=== PATIENT | female | born 1955 | race Caucasian/White ===

== ENCOUNTER → 2021-07-30 12:22 | Outpatient (CLI) | payer MEDICARE, SELFPAY ==
[2021-07-30 15:06] LABS: PTHIN 141.9 pg/mL (18.4-80.1)
[2021-07-30 15:13] LABS: Alkaline Phosphatase 95 U/L (45-117)
== END ==
PROVIDERS: PCP Family Medicine; Referring Provider Otolaryngology; Visit Provider Otolaryngology
DX: E83.52 Hypercalcemia (principal)
CPT/HCPCS: 36415; 82330; 83970; 84075

== ENCOUNTER → 2024-02-01 | Outpatient (CLI) | payer MEDICARE, SELFPAY ==
--- NOTE | 2024-02-01 10:08 | NM_ITS ---
CLINICAL: 68-year-old female with history of hypercalcemia and elevation of the serum parathyroid hormone level. 99m Tc SESTAMIBI DUAL PHASE PARATHYROID SCINTIGRAPHY COMPARISON: None available FINDINGS: Following the intravenous administration of 24.7 mCi of 99m Tc sestamibi, image acquisitions of the anterior neck at 15 minutes and approximately 3.0 hours post radiopharmaceutical provision reveal: 1. Immediate static blood pool acquisitions demonstrate distribution of the radiotracer in the right and left lobes of a U-shaped thyroid gland. Uptake is most accentuated in the region of the left thyroid parenchyma. 2. Delayed images depict incomplete washout of the radiopharmaceutical from the right lobe thyroid colloid. There is persistent relatively increased uptake noted in the left thyroid bed, essentially unchanged from the initial acquisitions. NM/Parathyroid Scan IMPRESSION: 1. ABNORMAL 99m Tc SESTAMIBI PARATHYROID IMAGING DUAL PHASE EXAMINATION. 2. There appears to be scintigraphic evidence of parathyroid adenoma involving the left lobe thyroid bed. 3. Incomplete-delayed washout of the radiopharmaceutical from the right lobe functioning thyroid colloid may be secondary to multinodular goiter, chronic lymphocytic thyroiditis. (Chambers, Radiographics 19: 601, 1999). Electronically Signed: Ramana Varghese DO at 9:28 EDT ,
== END | disposition home or self-care (01) ==
LOC: NM 10:06
PROVIDERS: Referring Provider Internal Medicine Endocrinology, Diabetes & Metabolism; Visit Provider Internal Medicine Endocrinology, Diabetes & Metabolism
DX: E55.9 Vitamin D deficiency, unspecified (principal); E21.3 Hyperparathyroidism, unspecified; N18.9 Chronic kidney disease, unspecified; E04.1 Nontoxic single thyroid nodule
CPT/HCPCS: 78070; A9500

== ENCOUNTER → 2024-04-30 | Outpatient (CLI) | payer MEDICARE, SELFPAY ==
--- NOTE | 2024-04-30 12:57 | US_ITS ---
STUDY: THYROID ULTRASOUND REASON FOR EXAM: Female, 68 years old. Thyroid ultrasound TECHNIQUE: Ultrasound evaluation of the thyroid was performed with real-time and static figueroa-scale imaging. COMPARISON: 10/13/2022 FINDINGS: RIGHT LOBE: The right lobe of the thyroid gland measures 5.3 x 1.6 x 1.9 cm. There is a heterogeneous echotexture. Nodule 1: No change in a 23 x 11 x 13 mm solid hypoechoic wider than tall smoothly marginated nodule with no echogenic foci (TR 4) in the anterior right lobe for which ultrasound-guided biopsy is recommended if never performed. LEFT LOBE: The left lobe of the thyroid gland measures 3.7 x 1.8 x 1.5 cm. There is a heterogeneous echotexture. Nodule 2: Enlarging (16 x 8 x 12 mm from 12 x 8 x 9 mm) solid hypoechoic wider than tall smoothly marginated nodule with no echogenic foci (TR 4) in the posterior left lobe for which ultrasound-guided biopsy is recommended. ISTHMUS: The isthmus measures 3 mm thick. Nodule 3: No change in the 6 x 4 x 5 mm solid hypoechoic wider than tall smoothly marginated nodule with no echogenic foci (TR 4) in the right side of the isthmus consistent with an adenoma.. The regional lymph nodes are normal. US/Thyroid IMPRESSION: Thyroiditis with dominant nodules for which ultrasound-guided biopsy is recommended, including an enlarging nodule in the left lobe.. Electronically Signed: Ramana Wilkins MD at 17:56 EDT ,
== END | disposition home or self-care (01) ==
PROVIDERS: Referring Provider Surgery; Visit Provider Surgery
DX: E04.1 Nontoxic single thyroid nodule (principal)
CPT/HCPCS: 76536

== ENCOUNTER → 2024-05-11 | Outpatient (CLI) | payer MEDICARE, SELFPAY ==
--- NOTE | 2024-05-11 | IMM_PTH ---
PATIENT: BEN SMILEY LOC: [facility] U#:[id number] AGE/SX: 68/F ROOM: RE05/11/[address]: Dr. Jose Martin Rey MD : 1955 BED: DIS: 05/11/2024 SPEC #: [id number] RECD: 05/23/24 14:33 STATUS: KADEN REQ #: [id number] MIKE: 05/11/24 00:[address]: Jose Martin Rey DEPT: IMMUNOHISTOCHEMISTRY RECD BY: Reza More ENTERED: 05/23/24 14:34 SP TYPE: IMMUNO OTHR DR: Dr. Mikel Mcnulty DO Tissues: A - Thyroid gland, NOS Procedures: Thyroglobulin (add) TTF1 (initial) PHYSICIAN & INSTITUTION [place] [id number] SPECIMEN INFORMATION: Tissue Source: A- Left thyroid nodule fluid Clinical Info: Left thyroid nodule Specimen Number: [id number] CPT code: 08959,52168 METHODOLOGY: Deparaffinized sections of prefer/formalin-fixed tissue or PAP/DQ stained slides are incubated with monoclonal/polyclonal antibodies/oligonucleotide probes. Localization is made via biotin free immunoperoxidase method. Appropriate controls are performed and reacted as expected. Results on target cell population are indicated in the following table: RESULTS: ANTIBODY / CLONE RESULT Block A TTF-1 (8G7G3/1) negative Thyro (2H11+6E1) negative These tests were developed and their performance characteristics determined by [facility]. They may not have been cleared or approved by the U.S. Food and Drug Administration. The FDA has determined that such clearance or approval is not necessary. The above immunohistochemical/dualISH markers are ordered and reviewed by the Pathologist. INTERPRETATION: A. Fine needle aspiration, left thyroid nodule fluid: Cells of parathyroid origin present. AM/mr 05/30/2024
--- NOTE | 2024-05-11 13:40 | FLU_PTH ---
PATIENT: BEN SMILEY LOC: [facility] U#:[id number] AGE/SX: 68/F ROOM: RE05/11/[address]: Dr. Jose Martin Rey MD : 1955 BED: DIS: 05/11/2024 SPEC #: [id number] RECD: 05/11/24 15:23 STATUS: KADEN RESuzi #: [id number] MIKE: 05/11/24 13:[address]: Jose Martin Rey DEPT: CYTOLOGY RECD BY: Ruby Nair ENTERED: 05/14/24 08:57 SP TYPE: Fluid OTHR DR: Dr. Mikel Mcnulyt DO Tissues: A - Thyroid gland, NOS B - Thyroid gland, NOS Procedures: Special Stain Group II Surgery Specimen Level IV Cytospin Fluid Cytology Other HEADER OPERATION: Fine needle aspiration of left thyroid nodule PRE-OP DIAGNOSIS: Left thyroid nodule TISSUE SUBMITTED: A- Left thyroid nodule fluid, B- Left thyroid nodule smears, C- Left thyroid fluid DIAGNOSIS CYTOLOGY A. Fine needle aspiration, left thyroid nodule (cytospins and cellblock): Cells of parathyroid origin present. See comment. B. Fine needle aspiration, left thyroid nodule (smears): Cells of parathyroid origin present. See comment. C. Fine needle aspiration, left thyroid (cytospins and cellblock): Cells of parathyroid origin present. See comment. AM/mr 05/15/2024 COMMENT A, B, C. The primary cell type is of parathyroid origin. Very rare benign follicular cells of thyroid origin are seen. Clinical correlation is suggested. C. PTH stain performed by reference laboratory is focally positive confirming cells of parathyroid origin. A. Immunohistochemistry ([id number]) supports the above diagnosis. Case has been reviewed in consultation with Dr. Palacios who concurs with the above diagnosis. IDC:DONALD CYTOLOGY STUDY Slides are reviewed. CYTOLOGY GROSS A. Received is 30 ml of red-cloudy fluid labeled with the patient's name and and designated per the requisition as Left thyroid fluid. Submitted for cytology preparation including cell block. B. Received are 4 smears labeled with the patient's name and designated per the requisition as Left thyroid. Submitted for staining. C. Received is 0.5 ml of red-cloudy fluid labeled with the patient's name and and designated per the requisition as Left thyroid fluid. Submitted for cytology preparation including cell block. Mr 05/14/2024 TC:5 CPT: 64754u8,92602
== END | disposition home or self-care (01) ==
LOC: LABSPEC 15:30
PROVIDERS: Referring Provider Surgery; Visit Provider Surgery
DX: E04.1 Nontoxic single thyroid nodule (principal)
CPT/HCPCS: 88108; 88161; 88305; 88313; 88341; 88342

== ENCOUNTER 2024-07-03 11:29 | Observation (INO) | payer MEDICARE, SELFPAY ==
[2024-07-03] VITALS (13 sets, daily range): BP systolic 130–169; BP diastolic 51–73; PULSE 54–96; RESP 14–18; TEMP 36.3–36.9; O2SAT 92–100; BMI 43.6
--- NOTE | 2024-07-03 | IMM_PTH ---
PATIENT: BEN SMILEY LOC: [facility] U#:[id number] AGE/SX: 68/F [place]OM: [facility] [place]/03/[address]: Dr. Jose Martin Rey MD : 1955 BED: 1 DIS: 07/04/2024 SPEC #: [id number] RECD: 07/04/24 13:53 STATUS: SOUShruthi REQ #: [id number] MIKE: 07/03/24 00:[address]: Jose Martin Rey DEPT: IMMUNOHISTOCHEMISTRY RECD BY: Reza More ENTERED: 07/04/24 13:54 SP TYPE: IMMUNO OTHR DR: Dr. Mikel Mcnulty, Tissues: Thyroid gland, NOS Procedures: Thyroglobulin (add) CD31 (add) FACTOR VIII (add) NEUROFIL (add) S-100 (add) TTF1 (initial) PHYSICIAN & INSTITUTION [place] [address] SPECIMEN INFORMATION: Tissue Source: Left thyroid lobe and isthmus Clinical Info: Hyperparathyroidism Specimen Number: [id number] CPT code: 67808,50119x5 METHODOLOGY: Deparaffinized sections of prefer/formalin-fixed tissue or PAP/DQ stained slides are incubated with monoclonal/polyclonal antibodies/oligonucleotide probes. Localization is made via biotin free immunoperoxidase method. Appropriate controls are performed and reacted as expected. Results on target cell population are indicated in the following table: RESULTS: ANTIBODY / CLONE RESULT Block #3 TTF-1 (8G7G3/1) negative Thyro (2H11+6E1) negative CD31 (TAMIKO/70A) negative Factor VIII (R Ag) negative S-100 (4C4.9) negative Neurofil (2F11) negative These tests were developed and their performance characteristics determined by [facility]. They may not have been cleared or approved by the U.S. Food and Drug Administration. The FDA has determined that such clearance or approval is not necessary. The above immunohistochemical/dualISH markers are ordered and reviewed by the Pathologist. INTERPRETATION: Left thyroid and isthmus, lobectomy and isthmectomy: Hyperplastic parathyroid tissue. AM 07/05/2024
--- NOTE | 2024-07-03 06:32 | HP.PCM_ITS ---
History and Physical Date of Admission: 07/03/24 Date of Service: 06/13/24 MR#: [id number] Acct: [id number] Name: BEN MAY Rep #: [id number] : 1955 Provider: Dr. Jose Martin Rey MD Age/Sex: 68/F Location: [facility] Status: Signed Intake Vital Signs 05/04/2414:26 06/13/2414:31 Height 5 ft 8 in 5 ft 8 in Weight: 282 lb 280 lb BMI 42.8 42.5 BP 141/60 H 104/66 Blood Pressure Location Rt brachial Lt brachial Position Sitting Respiration 18 18 Pulse 77 Pulse Source Monitor Temp 97.6 F L Temp Source Temporal Pulse Oximetry (%) 99 Oxygen Delivery Method room air Intake Visit Reasons: DISCUSS SURGERY Chief Complaint: discuss surgery Commercial Loan Officer Required: No Is patient in pain?: Yes (generalized) Allergies bee venom protein (honey bee) (bee sting) Adverse Reaction (Severe, Verified 06/13/24 14:31) Anaphylaxisclarithromycin (From Biaxin) Adverse Reaction (Unknown, Verified 06/13/24 14:31) PT UNSURE OF REACTION Medications ?Medication ?Instructions ?Recorded ?Confirmed ?Type atorvastatin 10 mg tablet 10 mg PO QDAY 04/05/24 06/13/24 History carvedilol 6.25 mg tablet 6.25 mg PO BID 04/05/24 06/13/24 History clopidogrel 75 mg tablet 75 mg PO QDAY 04/05/24 06/13/24 History diltiazem HCl 240 mg 240 mg PO QDAY 04/05/24 06/13/24 History capsule,extended release 24 hr guaifenesin 600 mg tablet, 600 mg PO BID 04/05/24 06/13/24 History extended release 12 hr isosorbide mononitrate 30 mg 30 mg PO QDAY 04/05/24 06/13/24 History tablet,extended release 24 hr levothyroxine 50 mcg tablet 50 mcg PO QDAY 04/05/24 06/13/24 History lisinopril 20 mg tablet 20 mg PO BID 04/05/24 06/13/24 History meloxicam 15 mg tablet 15 mg PO QDAY 04/05/24 06/13/24 History metformin 500 mg tablet 500 mg PO QDAY 04/05/24 06/13/24 History nitroglycerin 0.4 mg sublingual mg sublingual 04/05/24 06/13/24 History tablet spironolactone 50 mg tablet 50 mg PO QDAY 04/05/24 06/13/24 History tirzepatide 5 mg/0.5 mL mg subcut 04/05/24 06/13/24 History subcutaneous pen injector (Mounjaro) Have you fallen in the past year?: No PFSH Medical History (Updated 06/14/24 @ 16:[address] Jose Martin Rey MD) Diabetes type 2, controlled Supraventricular bigeminy Rheumatoid arthritis GEMMA on CPAP Microcytic anemia HTN (hypertension) Uterine cancer CKD (chronic kidney disease) Ventral hernia Diabetes CAD (coronary artery disease) Thyroid nodule Hyperparathyroidism Vitamin D deficiency Multiple thyroid nodules Surgical History Hx of heart artery stent Hx of ventral hernia repair Hx of cholecystectomy Hx of hysterectomy Family History Mother Thyroid atrophy Social History alcohol intake: never substance use type: does not use HPI HPI HPI: Patient is a 68-year-old female who presents for evaluation of hyperparathyroidism. They are referred for surgical consultation from Dr. Adams of endocrinology and Dr. Mikel Mcnulty. This represents her third consultation visit as her last visit was simply occasioned by FNA biopsy of a thyroid versus parathyroid lesion. She presents today declaring that she has remained in her usual state of health. She remarks that her PCP Dr. Mcnulty has told her recently that she is pretty healthy for everything that is wrong. Below is recapitulated from patient's initial consultation visit for ease of review: She shares that she has remained in the usual state of health, but is somewhat shaken up after talking with endocrinology about her further progressed lab results and the concerns that he had with respect to Mrs. May's kidneys, specifically. Unfortunately, when asked about holding of her Plavix medication Mrs. May states that she has held it but only for the past 2 days. This was discovered, reportedly, incidentally, during lab work in 2013. Patient shares that she had prepared for surgery with Dr. Hopper of ENT when he closed his practice. They do not experience difficulty with swallowing. They do not complain of a new cough. They do not appreciate new voice changes. They do have a history of snoring/sleep apnea. Additionally, their weight has been stable and they do not have a history of weight gain/loss or an inability to lose despite intentional effort. There is a history of recent fatigue. They do not have a history of heat or cold intolerance. Other symptoms include: Some constipation, thirst, frequent urination, and multiple dental problems (however, patient suggest that this is primarily centered on gingival pathology). They specifically deny any symptoms of reflux disease, concentration difficulties, brain fog, or depression. They also expressly deny any history of kidney stones or bony fractures. They do have a family history of thyroid disorders or endocrinopathies with her mother diagnosed with hypothyroidism. There is no history of prior radiation exposure. Patient does have a diet mildly high in dairy as she shares that she and her eat a lot of cheese. Patient's current labs are calcium: 11.7 mg/dL (12/19/2023) range of 11.5-11.7, Vitamin D: 12.6 ng/mL (12/19/2023), Ionized calcium: [Value]mg/dL [date], PTH: 257 pg/mL [date] range of 167-257 Current medications include: No calcium supplementation. Imaging as been done with parathyroid sestamibi scan 02/01/2024 and showed evidence of scintigraphic evidence of parathyroid adenoma involving the left lobe thyroid bed Patient has had DEXA imaging 01/30/2024 which showed normal bone mineral density. Patient has not had renal imaging but did have a 24-hour urine study with urinary calcium reported at 2.0 and urinary creatinine reported at 65.2 on 12/19/2023. Previous work-up has included right thyroid nodule FNA on 11/15/2022 which returned consistent with adenomatoid nodule. However, patient was noted to also have a left TI-RADS 4 nodule that was kept under surveillance. Patient denies any thyroid ultrasound imaging since 2022. ROS General General: Yes fatigue; No weight change, appetite, colon cancer, breast cancer or weakness HEENT HEENT: No difficulty swallowing, eye injury, eye surgery, swollen glands or hoarseness Endo Endocrine: Yes diabetes mellitus (metformin and Munjaro); No thyroid disease, thyroid cancer, Hair loss, heat intolerance or cold intolerance Skin Skin: No rash or changing moles Musc Musculoskeletal: Yes back problems, arthritis and rheumatoid arthritis; No gout or joint pain Cardio Cardiovascular: Yes heart disease, high blood pressure and heart stent; No murmur, pacemaker, atrial fibrillation, heart attack, palpitations, shortness of breat with exertion or chest pain Psych Psychiatric: No depression, anxiety or hearing voices Resp Respiratory: Yes shortness of breath, Yes sleep apnea, No cough, No COPD, Yes asthma, No emphysema and No wheezing Gastro Gastrointestinal: No abdominal pain, No nausea or vomiting, No diarrhea, Yes constipation, No blood in stool, No acid reflux, Yes hemorrhoids, No ulcers, No gallbladder problem and No black,tarry stools Abe Hematologic: Yes blood thinners, No blood disorders, No bleeding, Yes anemia and No blood clots Neuro Neurologic: No headache(s), No tingling and No weakness Exam Const General: cooperative and comfortable Orientation: alert, awake and oriented x3 Neck Other: Hirsute, supple, nontender Assessment and Plan Assessment and Plan (1) Hyperparathyroidism: Status: Acute Comment: Patient is a 68-year-old female with suggestion of primary hyperparathyroidism, however, she is diagnosed with vitamin D deficiency and her levels remain deficient. Thus interpretation is not completely clear. Surgical indications were reviewed and patient simply suffers from chronic kidney disease but does not have a history of kidney stones. Thus there is a relative surgical indication. Specifically patient has no history of bone mineral density issues either and this is despite a reported 10-year history with this diagnosis. Previously patient was evaluated for parathyroidectomy but this procedure was dropped after patient lost her ENT physician. At that time patient had been consented for probable 4 gland exploration with multi gland involvement, however, patient went for repeat parathyroid scan this year that was abnormal and seemed to singled out a parathyroid adenoma on the left. Indeed, when I scan patient's neck (in a cursory fashion) I find suspicion for possible left intrathyroidal parathyroid adenoma given the exceptionally hypoechoic appearance and mildly irregular border. Thus, if patient is deemed to have sufficient surgical indications and is inclined to pursue surgery I would consider biopsy of this thyroid lesion with PTH assay, concurrently. Patient would require hold of her Plavix in order to do so. She shares this would need to be run through cardiology group in [facility]. Update 05/04/2024: Patient completed right upper quadrant ultrasound imaging on 04/30/2024 and this showed a 2.3 cm TI-RADS 4 lesion of the right thyroid lobe that radiology characterized as no change from prior study on 10/13/2022. However, they the second nodule identified in the left thyroid lobe is enlarging and more specifically measured it at 1.6 x 0.8 x 1.2 cm from a previous measurement of 1.2 x 0.8 x 0.9 cm. They also characterize this as a TI-RADS 4 lesion and recommended further evaluation with ultrasound-guided biopsy. In the interim patient has also undergone repeat laboratory testing which shows her PTH is further elevated (now over 500) and her calcium is 11.6. Patient shares that her personnel research scientist is concerned about this clinical state and its impact on her kidneys. She relates that her personnel research scientist is convinced that she requires surgery. Update 06/13/2024: Patient underwent successful FNA of suspicious left thyroid lesion on 05/11/2024. Both the cytopathology and immunohistochemistry suggested the lesion biopsied actually represented parathyroid tissue. From patient's sonographic picture this appears to represent a intrathyroidal parathyroid ad enoma, however, shared with Mrs. May this cannot be considered definitive until we are able to grossly examine this area intraoperatively. Thus I have been upfront with her that I would consent her for both a left thyroid lobectomy versus parathyroidectomy. In the event that her left thyroid lobe is found wholly from the underlying parathyroid and both structures remain well encapsulated I would proceed simply with the latter. However, if it is apparent that the parathyroid is one with the thyroid lobe or there is not a clear separation and I would recommend proceeding with thyroid lobectomy to resect everything en bloc (as opposed to performing a thyroidotomy). I discussed my rationale that if this parathyroid were to represent a malignancy (considered a slightly higher risk than average parathyroid surgery given the apparent abnormal location of this adenoma) we would not be oncologically sound and simply removing the parathyroid tissue. I then went on to describe the planned procedure in detail and gave specific attention to the procedure?specific concerns of hypoparathyroidism and recurrent laryngeal nerve injury. Hand drawings were made to illustrate the relevant anatomy and physiology. I discussed the use of intraoperative PTH and nerve monitoring to both minimize the risks of these complications as well as facilitate the operation. Patient expressed understanding of this information. Lastly we discussed that we will plan for postoperative ulceration in the hospital given her limited access to assistance at home. Plan: Left thyroid lobectomy versus parathyroidectomy with intraoperative PTH and nerve monitoring. Intended for postoperative observational disposition. (2) Vitamin D deficiency: Status: Acute Comment: Patient with persistent vitamin D deficiency. Will reach out to patient's personnel research scientist and primary care provider to see if this can be optimized as we work to interpret patient's hyperparathyroidism labs and this can certainly be a cause of secondary hyperparathyroidism. Plan: Recheck patient's hydroxy vitamin D level (3) Multiple thyroid nodules: Status: Acute Comment: Patient with history of right and left TI-RADS 4 nodules. According to the record I only find evidence of FNA biopsy of patient's right-sided nodule on 11/15/2022. This was consistent with a clear [place] 2 lesion and described as an adenomatoid nodule. Patient should go for updated thyroid ultrasound both for characterization of thyroid nodules as well as any parathyroid candidates. As above, I do believe there is reasonable suspicion for a intrathyroidal parathyroid adenoma on the left. Patient with stable right-sided thyroid nodule that was just diagnosed/biopsied last year and was benign, however, enlarging left thyroid nodule. As above I do suspect this may represent a intrathyroidal parathyroid adenoma. I have proposed performing ultrasound-guided FNA of this lesion and also sending it for PTH assay. Unfortunately patient's hold of her Plavix is inadequate for biopsy today. I have stressed to her the need to avoid unnecessary risk for bleeding periprocedurally and she suggests agreement. Thus we will reschedule her for a biopsy procedure after appropriate hold of her Plavix. I did take the time today to review her ultrasound original imaging with her and share with her the cause of my suspicions. Patient was appreciative of this education. Update 05/11/2024: Patient's status post uncomplicated ultrasound-guided FNA of left thyroid nodule. PTH quantitative to be obtained on specimen to try to elucidate whether this represents intrathyroidal parathyroid tissue. Will plan to update patient on results once known. Patient advised to restart Plavix 48 hours post biopsy. Other wound care instructions are provided. Plan: Patient with stable right thyroid nodule not indicated for management and left thyroid nodule appears to actually represent a intrathyroidal parathyroid adenoma I have examined the patient the following changes are noted: Patient confirms hold of her Plavix for the last week and a half. She denies any questions related to today's procedure but a brief overview was given anyhow. Additionally, she reminds me that we are planning for a observational stay postoperatively as she previously shared she had minimal support at home. PTH for this morning's procedure is pending. Consents were confirmed. Plan to proceed to the OR for left parathyroidectomy versus thyroid lobectomy (if intraoperatively we confirmed that patient does indeed have a intrathyroidal parathyroid.
[2024-07-03] MEDS: Lactated Ringers 1,000 ML 15 ML IV ×2 (06:47→09:00)
[2024-07-03 07:07] LABS: PTHIN 229.7 pg/mL (18.4-80.1)
[2024-07-03 07:15] LABS: Bedside Glucose 136 mg/dL (74-106)
--- NOTE | 2024-07-03 07:31 | PCM.PRE.AN2 ---
ASA Classification* ASA Classification ASA Classification: 3 Assessment & Plan Anesthesia* Anesthesia Assessment Anesthesia Assessment: Discussed sedation and/or anesthesia options, risks, benefits, and alternatives with patient/parents/legal guardian/POA. Questions invited. The patient/parents/legal guardian/POA seems to understand and agrees to proceed with anesthesia plan. Reviewed the physical assessment, medical history, allergy history and patient home medications list prior to surgery/procedure/anesthetic and documented any changes. Performed airway and anesthesia risk assessments. Anesthesia Type Anesthesia Type: General (see written pre anesthesia record for full assessment ) Anesthesia Focused Assessment* Temperature: 98.5 F Pulse Rate: 87 Blood Pressure: 169/65 Respiratory Rate: 18 Pulse Ox: 99 Airway Assessment Mouth opens: >3 cm Mallampati Score: III Focused Labs Anesthesia Preop lab: CBC WBC 9.3 K/mm3 (4.4-11.0) 03/12/15 15:17 RBC 4.72 M/mm3 (4.2-5.4) 03/12/15 15:17 Hgb 13.3 g/dl (12.0-15.0) 03/12/15 15:17 Hct 41.1 % (37-47) 03/12/15 15:17 Plt Count 311 K/mm3 (150-450) 03/12/15 15:17 CHEMISTRY Potassium 4.1 mmol/L (3.5-5.1) 03/12/15 15:17 Sodium 138 mmol/L (136-145) 03/12/15 15:17 BUN 17 mg/dL (7-18) 03/12/15 15:17 Creatinine 0.8 mg/dL (0.6-1.0) 03/12/15 15:17 Glucose 146 mg/dL (70-110) H 03/12/15 15:17 POC Glucose 136 mg/dL (74-106) H 07/03/24 06:23 COAG Pre-Assessment Diagnosis/Proposed Procedure Planned Operative Procedure(s): LEFT THYROID LOBECTOMY VS PARATHYROIDECTOMY AND INTRAOPERATIVE NERVE MONITORING AND PARATHYROID HORMONE Anesthesia History Anesthesia History - clinical biostatistician: Anesthesia History - clinical biostatistician Hx Hospitalization No 06/26/24 13:23 Any Problems With Anesthesia No 06/26/24 13:23 Cholinesterase deficiency No 06/26/24 13:23 You/Your Family Experience No 06/26/24 13:23 fever (hyperthermia) with Relationship Recent Exposure to Contagious No 07/03/24 06:38 Disease Does patient have nerve No 06/26/24 13:23 stimulator Patient instructed to have device shut off --Does patient have Pacemaker No 07/03/24 06:43 or ICD? When Was Last Pacemaker Check QUESTION #4 FULL TEXT: You/Your Family Experience fever (hyperthermia) with Anesthesia Last Oral Intake Last Oral intake: Last Oral Intake NPO since 21:00 07/03/24 06:43 Meds taken in AM with sips of Yes 07/03/24 06:43 water? Meds patient instructed to take am of surgery PONV PONV - clinical biostatistician: PONV - clinical biostatistician Female Yes 06/26/24 13:23 HX of Motion Sickness No 06/26/24 13:23 HX of N/V After Surgery No 06/26/24 13:23 Non-Smoker Yes 06/26/24 13:23 Duration of Surgery greater Yes 06/26/24 13:23 than 60 minutes Number of Risk Factors 3 06/26/24 13:23 PONV Score Moderate Risk 06/26/24 13:23 Height & Weight Height & Weight: Anesthesia: Height & Weight Height 5 ft 8 in 07/03/24 06:43 Weight: 130.181 kg 07/03/24 06:43 Body Mass Index (BMI) 43.6 07/03/24 06:43 Respiratory Assessment Respiratory Assessment - clinical biostatistician: Respiratory Tract Infection Hx - clinical biostatistician Hx Respiratory Tract Infection No 06/26/24 13:23 STOP Sleep Apnea STOP Sleep Apnea - clinical biostatistician: STOP Sleep Apnea - clinical biostatistician Hx Hypertension Yes: CONTROLLED WITH MEDS 06/26/24 13:23 Hx Sleep Apnea Yes 06/26/24 13:23 CPAP Yes 06/26/24 13:23 BIPAP No 06/26/24 13:23 Do you snore loudly (louder than talking or can be heard Do you often feel tired/ fatigued/ sleepy during daytime? Has anyone observed you stop breathing during sleep? STOP Results Positive 06/26/24 13:23 QUESTION #5 FULL TEXT : Do you snore loudly (louder than talking or can be heard through closed doors)? Tobacco Use History Tobacco Use History - clinical biostatistician: Tobacco Use History - clinical biostatistician Tobacco Use Smoking Status Former smoker 06/26/24 13:23 Hx Tobacco Use No 06/26/24 13:23 Years Smoking Packs Smoked per Day Smoking Cessation Date was No - quit smoking greater 06/26/24 13:23 within the last 15 years than 15 years ago Hx Smoking Cessation Date Hx Smoking Cessation No 06/26/24 13:23 Counseling Hematologic Medial History Hematologic Hx - clinical biostatistician: Hematologic Medical Hx - store hand Hx of Blood Transfusion No 06/26/24 13:23 Hx of Transfusion in last 3 No 06/26/24 13:23 Months Date of Last Transfusion (if within last 3 months) Ever experience any problems No 06/26/24 13:23 with transfusion(s)? Specify any problems Hx of Preganancy in last 3 No 06/26/24 13:23 Months Nurse Filling Out Transfusion DSCHRIBER 06/26/24 13:23 & Questions: Date: 06/26/24 06/26/24 13:23 Time: 13:25 06/26/24 13:23 Patient unable to answer at this time (ie. confused, unrespo /Reproduction History /Reproductive History - clinical biostatistician: /Reproductive Hx- clinical biostatistician Hx Now No 06/26/24 13:23 Gestational Age (in weeks): EDC: Hx Hx Para Hx Section SAB No 06/26/24 13:23 Active Medications Active Medications: Current Medications Generic Name Dose Route Start Last Admin Trade Name Freq PRN Reason Stop Dose Admin Cefazolin Sodium 3 gm/ Sodium 115 mls @ 150 mls/hr 07/03/24 07:30 Chloride IV 07/03/24 08:15 PREOP ONE Lactated Ringer's 1,000 mls @ 15 mls/hr 07/03/24 06:15 07/03/24 06:47 IV 15 mls/hr .Q48H IVAN Administration PFSH Medical History Wears glasses Wears partial dentures Post-menopausal Thyroid disease Ambulates with cane Bladder disease History of renal disease Anemia High cholesterol Back pain Injury of head and neck Dietary restriction Former smoker CPAP (continuous positive airway pressure) dependence Asthma Shortness of breath on exertion History of pain when walking History of echocardiogram History of stress test Cardiology follow-up encounter Chest pain Diabetes type 2, controlled Supraventricular bigeminy Rheumatoid arthritis GEMMA on CPAP Microcytic anemia HTN (hypertension) Uterine cancer CKD (chronic kidney disease) Ventral hernia Diabetes CAD (coronary artery disease) Multiple thyroid nodules Vitamin D deficiency Hyperparathyroidism Thyroid nodule Home Medications ?Medication ?Instructions ?Recorded ?Last Taken ?Type atorvastatin 10 mg tablet 10 mg PO QDAY 04/05/24 07/02/24 History carvedilol 6.25 mg tablet 6.25 mg PO BID 04/05/24 07/03/24 04:30 History clopidogrel 75 mg tablet 75 mg PO QDAY 04/05/24 06/23/24 History diltiazem HCl 240 mg 240 mg PO QDAY 04/05/24 07/03/24 04:30 History capsule,extended release 24 hr isosorbide mononitrate 30 mg 30 mg PO QDAY 04/05/24 07/03/24 04:30 History tablet,extended release 24 hr levothyroxine 50 mcg tablet 50 mcg PO QDAY 04/05/24 07/03/24 04:30 History lisinopril 20 mg tablet 20 mg PO BID 04/05/24 07/03/24 04:30 History meloxicam 15 mg tablet 7.5 mg PO QDAY 04/05/24 04/16/24 History metformin 500 mg tablet 500 mg PO QDAY 04/05/24 07/02/24 History nitroglycerin 0.4 mg sublingual 0.4 mg sublingual Q5M PRN chest 04/05/24 Unknown History tablet pain spironolactone 50 mg tablet 50 mg PO QDAY 04/05/24 Unknown History tirzepatide 5 mg/0.5 mL 5 mg subcut STALLINGS 04/05/24 06/17/24 History subcutaneous pen injector (Mounjaro) albuterol 90 mcg/actuation aerosol 90 mcg inhalation Q6H PRN PRN 06/26/24 Unknown History inhaler ASTHMA Allergy/AdvReac Type Severity Reaction Status Date / Time fluticasone (From Flonase) Allergy Hives Verified 07/03/24 06:28 bee venom protein (honey AdvReac Severe Anaphylaxis Verified 07/03/24 06:28 bee) (bee sting) clarithromycin (From Biaxin) AdvReac Unknown PT UNSURE Verified 07/03/24 06:28 OF REACTION Family History Mother Thyroid atrophy Surgical History (Updated 06/26/24 @ 13:34 by Polly Ang) History of cardiac catheterization Hx of heart artery stent Hx of ventral hernia repair Hx of cholecystectomy Hx of hysterectomy Social History Smoking Status: Former smoker alcohol intake: never substance use type: does not use Review of Systems (Anesthesia) ROS Narrative System reviewed and no additional complaints, except as documented.
[2024-07-03] MEDS: Cefazolin 3 GM in 0.9% Normal Saline (100mL Bag) 100 ML IV (07:33)
[2024-07-03 09:01] LABS: PTHIN 784.5 pg/mL (18.4-80.1)
--- NOTE | 2024-07-03 10:00 | THYROID_PTH ---
PATIENT: BEN SMILEY LOC: MS3 U#:[id number] AGE/SX: 68/F ROOM: [facility] [place]07/03/[address]: Dr. Jose Martin Rey MD : 1955 BED: 1 DIS: 07/04/2024 SPEC #: [id number] RECD: 07/03/24 11:16 STATUS: KADEN FRANCES #: [id number] MIKE: 07/03/24 10:[address]: Jose Martin Rey DEPT: SURGICAL PATHOLOGY RECD BY: Reza More ENTERED: 07/03/24 11:17 SP TYPE: THYROID OTHR DR: Dr. Mikel Mcnulty, DO Tissues: Thyroid gland, NOS Procedures: Frozen Section (charge) Surgery Specimen Level V HEADER OPERATION: Left thyroid lobectomy vs Parathyroid PRE-OP DIAGNOSIS: Hyperparathyroidism TISSUE SUBMITTED: Left thyroid lobe and isthmus, stitch lunsford superior pole FROZEN SECTION DIAGNOSIS Left thyroid lobe and isthmus, excision: Intrathyroidal hyperplastic parathyroid gland. / 07/03/2024 MICROSCOPIC DIAGNOSIS Left thyroid lobe and isthmus, lobectomy and isthmectomy: Hyperplastic parathyroid gland. Colloid nodules of thyroid gland. / 07/04/2024 COMMENT Immunohistochemistry ([id number]) supports the above diagnosis. Case has been reviewed in consultation with Dr. Palacios who concurs with the above diagnosis. IDC:SJ MICROSCOPIC DESCRIPTION Slides are reviewed. GROSS DESCRIPTION Received fresh for frozen section consultation labeled with the patient's name is a specimen designated Left thyroid lobe and isthmus. The specimen consists of a lobe of thyroid and isthmus. The lobe measures 3.5 x 2.5 x 1.0cm and the isthmus measures 1.6 x 1.5 x 0.3cm. The specimen is differentially inked as follows: anterior surface- blue, posterior surface of thyroid- black, posterior surface of isthmus- red. Serial sections of the left lobe reveal a la nodule within the thyroid measuring 1.2 x 0.7 x 0.6cm. A industrial relations representative section of this nodule is submitted for frozen section consultation. The remainder of the specimen is submitted in its entirety in 2-6. AM/mr 07/03/2024 TC:5 CPT:05347,85113
[2024-07-03 11:05] LABS: PTHIN 25.9 pg/mL (18.4-80.1)
[2024-07-03 11:09] LABS: PTHIN 23.6 pg/mL (18.4-80.1)
[2024-07-03] MEDS: Bupivacaine 0.25% 30 ML Vial (11:11)
--- NOTE | 2024-07-03 11:37 | PCM.POST.ANE ---
Anesthesia: Postop Eval I Current Vital Signs Temperature: 97.3 F Pulse Rate: 96 Blood Pressure: 161/73 Respiratory Rate: 18 Pulse Ox: 92 Oxygen Delivery Method: Nasal Cannula Oxygen Flow Rate (L/min): 4 Assessment Airway patent: Yes Spontaneous unlabored respirations: Yes Mental status: Awake and Calm nausea: No Vomiting: No Anesthesia Complication: No Fluid Hydration Crystalloid volume administer (ml): 1,400 Total IV fluid infused: 1,400 Progress Note Post-operative progress note: C&DB ENC'D; HOB UP 30DEGREES Anesthesia document: Postop Eval 1 completed: Yes
[2024-07-03 12:12] LABS: PTHIN 16.6 pg/mL (18.4-80.1)
[2024-07-03] MEDS: Calcium Carb/Vitamin D 1 TABLET Tablet PO (14:10)
[2024-07-03] MEDS: 0.9% Normal Saline (1000mL) 1,000 ML 125 ML IV (15:56)
[2024-07-03] MEDS: Calcium Carb/Vitamin D 1 TABLET Tablet 2 TABLET PO (16:25)
[2024-07-03] MEDS: Carvedilol 6.25 MG Tablet PO (16:41)
--- NOTE | 2024-07-03 17:14 | PCM.OPRPT ---
Report of Operation Date of Procedure: 07/03/24 Pre-Operative Diagnosis: 1. Primary hyperparathyroidism 2. Suspected left intrathyroidal parathyroid adenoma Post-Operative Diagnosis: 1. Primary hyperparathyroidism 2. Left intrathyroidal parathyroid adenoma Surgery/Procedure Performed:: Left thyroid lobectomy with isthmusectomy using intraoperative nerve and PTH monitoring Description of Surgical Findings:: ? Deeply?located thyroid gland with tubercle of Zuckerkandl adherent to underlying esophagus ? Pathology?confirmed intrathyroidal parathyroid adenoma measuring up to 1.2 cm in greatest dimension ? Strong Nims signal from left recurrent laryngeal nerve Surgeon: Jose Martin Rey narrow fabrics weaver: Pravin Caraballo Type of Anesthesia: General/Supplemental Anesthesiologist: Dawit Estrada Specimen's removed: Left thyroid lobe and isthmus Estimated Blood Loss (mL): 15 Description of Procedure: After appropriate identification in the preoperative holding area, the patient was brought to the operating room where she was positioned supine on the operating room table. Of note, a preoperative PTH had been obtained and was reported as to 29.7. Induction of general endotracheal anesthetic was begun and a NIMS tube was placed under glidescope view to confirm coaptation with the vocal cords anteriorly. Tube was then secured and the patient was positioned with a shoulder roll so that her head was in extension but supported. The Nims electrodes were placed and connected to the monitor. We had appropriate resistance showing on the monitor and tapping at the level of the cricoid produce a graphical representation of the impulse on the monitor. Ultrasound was used to localize the hypoechoic area within patient's left thyroid lobe and an incision was planned along a natural skin fold in that vicinity. Patient's neck was then prepped and draped in usual sterile fashion and a formal timeout was conducted from those present. A transverse incision was extended for 2.5 cm on either side of midline. Electrocautery was used to deepen this incision through the level of the platysma. Subplatysmal flaps were raised with the use of electrocautery and blunt dissection. Ultimately the strap muscles were exposed and were divided along their raphe with electrocautery. I then paused and the sternothyroid from the overlying sternohyoid muscle as I proceeded with dissection laterally towards the patient's left internal jugular vein. Once this structure was sufficiently exposed I obtained a baseline central vein PTH level. This ultimately returned at 784.5. As we awaited this result I returned to the central neck where I used blunt dissection to free the sternothyroid muscle from the thyroid capsule of the left thyroid lobe deeply. The lateral attachments of the strap muscles to the capsule were also dissected free and I look to mobilize the poles without disrupting their vascular supply. I sought to try to medialized the left thyroid lobe to see if there was a discrete parathyroid adenoma deep to the thyroid lobe. Inferiorly I detected a tubular structure that was somewhat suggestive of possible parathyroid adenoma, but as my dissection proceeded carefully I became concerned this actually represented a distortion of patient's esophagus and I asked anesthesia to place an orogastric tube. They obliged this request and after asking them to manipulate the tube I confirmed that the structure in question was indeed the esophagus. Thus any further dissection here was abandoned and I became convinced that I would have to proceed with a formal thyroid lobectomy as no deeper structures remained as candidate lesions for parathyroid adenoma. On reaching this observation the vessels of the inferior pole were isolated and divided with LigaSure energy. Then retractors were placed providing excellent visualization of the left superior pole of the thyroid. The vessels of the superior pole were sequentially ligated with the use of the LigaSure device. It was noted that the medial aspect of the superior pole was particular adherent to the thyroid cartilage and this took more tedious dissection to separate the thyroid tissue from both the cartilage as well as the underlying musculature as I sought to avoid any inadvertent injury to the superior laryngeal nerve. As we moved towards the thyroid gland away from the pole vessels the thyroid was mobilized medially. To do so I found that I had to proceed in an inferior to superior orientation as the tubercle of Zuckerkandl on the left was densely adherent to the underlying esophagus. To avoid any esophageal injuries I repeatedly palpated the location of the esophagus after asking anesthesia to manipulate the patient's orogastric tube and proceeded with any division of tissue on the thyroid side of the specimen. Gradually we were able to elevate the gland and I visualized a pearlescent structure in the inferior aspect of the surgical cavity suggestive of a recurrent laryngeal nerve. Here I encountered a positive signal for the left recurrent laryngeal nerve. The nerve positively identified, I relieved the attachments of the thyroid gland to the underlying trachea with the use of LigaSure. As we again approached the nerve insertion of the cricothyroid membrane, I elected to leave a minuscule amount of thyroid tissue intact using 4-0 silk ligatures. The area around the ligament of Mondragon was highly vascular and this process proved tedious. The recurrent laryngeal nerve signal was checked prior to the division of any thyroid tissue. In the cephalad portion of the incision, I examined the specimen for a pyramidal lobe but did not find any significant cephalad extension. Once I had assured clearance from the nerve, the remaining thyroid tissue was removed from the anterior surface of the trachea with electrocautery to include the entirety of the thyroid isthmus. The specimen was divided with the LigaSure device for hemostasis. The specimen was oriented with a stitch through the left superior pole and was passed off the field for frozen section confirmation. We telephoned pathology to confirm the expectation to simply open the specimen and confirm an intrathyroidal parathyroid. (Later, pathology telephoned the room to notify us that indeed they confirmed parathyroid entirely encapsulated within the thyroid gland). As we awaited this result, I irrigated the surgical cavity with sterile water examined for hemostasis. Left internal jugular ex vivo blood draws were made with a 22-gauge needle and syringe at 10 and 15 minutes were 25.9 and 23.6, respectively. Pressure was applied to the surgical cavity and there was some slight oozing along the anterior surface of the trachea well away from the recurrent laryngeal nerve where selective electrocautery was applied. Closer to the nerve there was some additional oozing and Surgicel hemostatic agent was placed while pressure was applied. Once this pressure was relieved, the surgical cavity was again inspected and we found hemostasis to be intact. We also a well-functioning recurrent laryngeal nerve. Satisfied with this result, the strap muscles were closed with a running 3-0 Vicryl stitch leaving a small gap at the inferior aspect of the suture line. The platysmal flaps were closed with interrupted 3-0 Vicryl. Some additional local anesthetic was infiltrated throughout the dermis and the skin was closed in a subcuticular fashion using 4-0 Monocryl. Steri-Strips were applied. Telfa and Tegaderm were used as a dressing. The patient was then awakened from anesthetic without event and was taken to PACU for ongoing recovery. Complications None Admit VTE Documentation VTE Mechan Device Prophylaxis: SCD's
--- NOTE | 2024-07-03 17:24 | POSTOPAN2_ITS ---
Anesthesia Postop Eval I Sum Postop Eval Completion status Anesthesia document: Postop Eval 1 completed: Yes Anesthesia Postop Eval I Summary Anesthesia Postop Eval I Summary: Anesthesia Postop Eval I: Assessment Summary Airway patent Yes 07/03/24 11:39 EMR [email or web address].SCHR Spontaneous unlabored Yes 07/03/24 11:39 EMR SPECIALIST.SCHR respirations Mental status Awake,Calm 07/03/24 11:39 EMR SPECIALIST.SCHR nausea No 07/03/24 11:39 EMR SPECIALIST.SCHR Vomiting No 07/03/24 11:39 EMR SPECIALIST.SCHR Anesthesia Postop Eval I: Fluid Summary Crystalloid volume administer 1,400 07/03/24 11:39 EMR SPECIALIST.SCHR (ml) Colloids volume administered ( ml) Blood Product volume administered (ml) Total IV fluid infused 1,400 07/03/24 11:39 EMR SPECIALIST.SCHR Anesthesia Postop Eval I: Summary Notes Anesthesia Complication No 07/03/24 11:39 EMR SPECIALIST.SCHR Anesthesia Complication Comment: Post-operative progress note C&DB ENC'D; HOB UP 07/03/24 11:39 [facility] Anesthesia: Postop Eval II Evaluation Mental status: Awake and Calm Pain Level: 1 nausea: No Vomiting: No Complications Anesthesia Complication: No
--- NOTE | 2024-07-03 17:24 | PCM.POSTANE2 ---
Anesthesia Postop Eval I Sum Postop Eval Completion status Anesthesia document: Postop Eval 1 completed: Yes Anesthesia Postop Eval I Summary Anesthesia Postop Eval I Summary: Anesthesia Postop Eval I: Assessment Summary Airway patent Yes 07/03/24 11:39 SAMPLER AND TEST PREPARER.SCHR Spontaneous unlabored Yes 07/03/24 11:39 SAMPLER AND TEST PREPARER.SCHR respirations Mental status Awake,Calm 07/03/24 11:39 SAMPLER AND TEST PREPARER.SCHR nausea No 07/03/24 11:39 SAMPLER AND TEST PREPARER.SCHR Vomiting No 07/03/24 11:39 SAMPLER AND TEST PREPARER.SCHR Anesthesia Postop Eval I: Fluid Summary Crystalloid volume administer 1,400 07/03/24 11:39 SAMPLER AND TEST PREPARER.SCHR (ml) Colloids volume administered ( ml) Blood Product volume administered (ml) Total IV fluid infused 1,400 07/03/24 11:39 SAMPLER AND TEST PREPARER.SCHR Anesthesia Postop Eval I: Summary Notes Anesthesia Complication No 07/03/24 11:39 SAMPLER AND TEST PREPARER.SCHR Anesthesia Complication Comment: Post-operative progress note C&DB ENC'D; HOB UP 07/03/24 11:39 SAMPLER AND TEST PREPARER.[facility] Anesthesia: Postop Eval II Evaluation Mental status: Awake and Calm Pain Level: 1 nausea: No Vomiting: No Complications Anesthesia Complication: No
[2024-07-03] MEDS: Atorvastatin Calcium 10 MG Tablet PO (20:19)
[2024-07-04] MEDS: 0.9% Normal Saline (1000mL) 1,000 ML 125 ML IV (00:11)
[2024-07-04 00:12] VITALS: BP 155/66; PULSE 55; RESP 16; TEMP 36.6; O2SAT 98
[2024-07-04] MEDS: Acetaminophen 500 MG Tablet PO (02:22)
[2024-07-04 04:00] VITALS: BP 96/72; PULSE 61; RESP 18; TEMP 36.6; O2SAT 97
[2024-07-04] MEDS: Calcium Carb/Vitamin D 1 TABLET Tablet 2 TABLET PO ×2 (07:36→11:37)
[2024-07-04 07:47] VITALS: BP 127/51; PULSE 48; RESP 18; TEMP 36.7; O2SAT 99
[2024-07-04 07:59] LABS: PTHIN 12.3 pg/mL (18.4-80.1)
[2024-07-04 08:01] LABS: Calcium,Total 10.5 mg/dL (8.5-10.1)
--- NOTE | 2024-07-04 08:47 | PN.SURG_ITS ---
Subjective Subjective Patient is evaluated resting comfortably in bed. She notes minimal amount of numbness/tingling on the fingertips which has improved from yesterday. She notes very little to no incisional pain. She denies nausea, vomiting. She is tolerating clear liquids. Objective Data Objective Data Vital Signs: Vital Signs Temp Pulse Resp BP Pulse Ox O2 Del Method O2 Flow Rate 98.0 F 48 L 18 127/51 H 99 Room Air 2 07/04/24 07:47 07/04/24 07:47 07/04/24 07:47 07/04/24 07:47 07/04/24 07:47 07/04/24 07:47 07/03/24 12:00 Oxygen Flow Rate (L/min) 2 Oxygen Delivery Method Room Air Weight: 287 lb Body Mass Index (BMI) 43.6 Intake & Output: Intake and Output for Last 24 Hours 07/02/24 07/03/24 07/04/24 23:59 23:59 23:59 Intake Total 2115 / 2115 Output Total 500 / 500 Balance 1615 / 1615 Lab / Micro Data Labs: Laboratory Results - last 24 hr 07/03/24 08:36: PTH Intact 784.5 H 07/03/24 10:36: PTH Intact 25.9 07/03/24 10:43: PTH Intact 23.6 07/03/24 11:50: PTH Intact 16.6 L 07/04/24 06:30: Calcium 10.5 H, PTH Intact 12.3 L Physical Exam Neck Neck Narrative: Anterior neck- incision c/d/i. No erythema or infection noted. Op-site dressing intact. Assessment & Plan Assessment/Plan (1) S/P partial thyroidectomy: PLAN: I am following this patient in conjunction with Dr. Rey. He has indepe ndently evaluated this patient. Labs reviewed. Calcium elevated. Will decrease home-going calcium intake. Increase to regular diet Plan for discharge later morning today Charges/Coding Visit Charges Inpatient E&M: 77118 Subs Hosp L1 (no charge; post-op)
--- NOTE | 2024-07-04 09:21 | DCINST_ITS ---
Discharge Instructions Diet Discharge Diet: Light diet - advance as tolerated Activity Discharge Activity: May Not Drive (3-5 days) and May Shower (2 days from surgery) May shower in (days): 2 Ice area for (Minutes): 20 Lifting Restrictions: No lifting greater than 10 pounds for 2 weeks Additional Activity Instructions:: Recommend icing over the next 48 hours Recommend slow chin to chest and side to side head movements for range of motion Recommend elevating your head at a 30 degree angle for the next 48 hours when laying Dressing / Incision Call your doctor if your incision/area has: Continuous Slow Oozing, Sudden Increased Bleeding, Increased Pain/ Swelling, Increased Redness, Foul Smelling Discharge and Swelling at the incision site Call your doctor if you observe: Fever of 101 or Higher Suture Line Care: Avoid Pulling/Pushing and Avoid Pinching/Bending Remove Dressing in: 2 days Cleanse incision/area with: Soap & Water Additional Dressing/Incision Instructions:: There will be surgical glue in place. Leave in place until it falls off. Follow Up Care Please Follow Up With: Jose Martin Rey MD When: Please call our office at [phone], option #2 to schedule a follow-up with Dr. Rey in 10-14 days from your surgery. You will need to obtain labs prior to appointment. Orders have been placed. Test Results: Test results from this visit will be discussed in further detail at your follow- up appointment, if applicable. Discharge Plan Admission Admit Date/Time: 07/03/24 11:29 Primary Reason for Your Visit: S/p left thyroid lobectomy with isthmusectomy Attending Provider: Jose Martin Rey Primary Care Provider: Mikel Mcnulty Instructions Additional Instructions / Restrictions: Thyroid Diet ? Start light with soups and soft bland foods. You may advance diet as tolerated. Activity ? You may drive in 3-5 days but not while taking narcotic pain medication. ? I encourage walking. You may go up steps, one at a time. ? Do not swim or use hot tubs for 2 weeks. Lifting ? You may lift up to 10 pounds for the first 2 weeks. Dressings/Incision ? You may shower OVER surgical glue and/or steri-strips in place ? Do NOT tub bathe for 1 week ? If you have clothing that rubs on your incision, you should protect it with gauze and tape, or an oversized band-aid for the first 3 to 5 days. Medications In addition to your routine medication, you will also be adding a prescription calcium supplement that you will take 2 tablets in morning, 1 tablet at lunchtime and 2 tablets at dinner. You may take 2 tablets of extra-strength TUMs as needed for any numbness/tingling you may experience. If you do experience numbness or tingling, please contact our office immediately for an update. We may need to obtain labs sooner than scheduled. ? Anesthesia used during surgery and pain medications may cause constipation. I recommend initiating on the day of surgery a fiber supplement like, Metamucil, Citrucel, FiberCon, Benefiber, or a generic form of these medications. 1 heaping tablespoon in water daily. You may continue to utilize any bowel regimen or oral laxatives that you routinely take. ? As long as you are not intolerant to Tylenol, acetaminophen, ibuprofen, Motrin, Advil, Aleve, or similar medications, I would recommend transitioning to these bulo-viy-enejobz medicines as soon as possible instead of continued use of narcotic pain medication. Follow up ? You should call [facility] soon after surgery, at [phone] option 1 to make a follow up appointment for 10-14 days after your surgery. You will need to obtain lab work prior to your appointment, either the day of or the day before. Orders have been placed for a calcium and PTH blood work. Discharge Orders/Prescriptions Prescriptions: New acetaminophen 500 mg Tablet 500 mg PO Q6H PRN PRN (Reason: Pain Score 1-10) Qty: 0 0RF calcium carbonate-vitamin D3 [Oyster Shell Calcium-Vit D3] 500 mg-5 mcg (200 unit) Tablet 2 tab PO TIDCM 14 Days Qty: 84 0RF Rx Instructions: Take 2 tablets at breakfast and dinner and 1 tablet at lunchtime Continued atorvastatin 10 mg tablet 10 mg PO QDAY carvedilol 6.25 mg tablet 6.25 mg PO BID metformin 500 mg tablet 500 mg PO QDAY spironolactone 50 mg tablet 50 mg PO QDAY Mounjaro 5 mg/0.5 mL pen injector 5 mg subcut STALLINGS levothyroxine 50 mcg tablet 50 mcg PO QDAY nitroglycerin 0.4 mg tablet, sublingual 0.4 mg sublingual Q5M PRN (Reason: chest pain) lisinopril 20 mg tablet 20 mg PO BID meloxicam 15 mg tablet 7.5 mg PO QDAY isosorbide mononitrate 30 mg tablet extended release 24 hr 30 mg PO QDAY diltiazem HCl 240 mg capsule,extended release 24hr 240 mg PO QDAY albuterol 90 mcg/actuation aerosol 90 mcg inhalation Q6H PRN PRN (Reason: ASTHMA) Held clopidogrel 75 mg tablet 75 mg PO QDAY Hold Instructions: Resume on 07/06/24. Other Ambulatory Orders: PTHIN (Routine) Timeframe: 20240718 Facility: [facility] - Location: Laboratory Ordered By: Mandy PALOMARES Calcium,Total (Routine) Timeframe: 20240718 Facility: [facility] - Location: Laboratory Ordered By: Mandy PALOMARES Referrals / Follow Up: Mikel Mcnulty DO [Primary Care Provider] - Jose Martin Rey MD [Med Staff - Active Staff] - 07/18/24 (Please call for an appointment) Disposition Disposition (needs filled in before D/C Order can be placed): Home, Self Care
[2024-07-04] MEDS: FLU VACCINE **HIGH DOSE** TV 24-25 180 MCG/0.5 ML SYRINGE IM (09:41)
--- NOTE | 2024-07-04 11:46 | CASEMGMT ---
Met with patient to complete NICHOLAS form. NICHOLAS form explained to patient who voiced understanding and signed form. Original form placed in pt?s chart and copy provided to patient. Rochelle Chow, Discharge Planning Asst
[2024-07-04 11:47] VITALS: BP 157/60; PULSE 60; RESP 18; TEMP 36.7; O2SAT 100
--- NOTE | 2024-07-04 13:42 | DS.PCM_ITS ---
Providers Date of Admission: 07/03/24 Primary Care Physician: Dr. Mikel Mcnulty, DO Reason For Visit: Left Thyroid Lobectomy vs Parathyroidectomy, PTH m Diagnosis Discharge Diagnosis (1) S/P partial thyroidectomy: Status: Acute Code(s): E89.0 - Postprocedural hypothyroidism Plan: I am following this patient in conjunction with Dr. Rey. He has independently evaluated this patient. Labs reviewed. Calcium elevated. Will decrease home-going calcium intake. Increase to regular diet Plan for discharge later morning today Medications at Discharge Home Medications atorvastatin 10 mg tablet 10 mg PO QDAY 04/05/24 carvedilol 6.25 mg tablet 6.25 mg PO BID 04/05/24 clopidogrel 75 mg tablet 75 mg PO QDAY 04/05/24 diltiazem HCl 240 mg capsule,extended release 24 hr 240 mg PO QDAY 04/05/24 isosorbide mononitrate 30 mg tablet,extended release 24 hr 30 mg PO QDAY 04/05/24 levothyroxine 50 mcg tablet 50 mcg PO QDAY 04/05/24 lisinopril 20 mg tablet 20 mg PO BID 04/05/24 meloxicam 15 mg tablet 7.5 mg PO QDAY 04/05/24 metformin 500 mg tablet 500 mg PO QDAY 04/05/24 nitroglycerin 0.4 mg sublingual tablet 0.4 mg sublingual Q5M PRN chest pain 04/05/24 spironolactone 50 mg tablet 50 mg PO QDAY 04/05/24 tirzepatide 5 mg/0.5 mL subcutaneous pen injector (Mounjaro) 5 mg subcut STALLINGS 04/05/24 albuterol 90 mcg/actuation aerosol inhaler 90 mcg inhalation Q6H PRN PRN ASTHMA 06/26/24 acetaminophen 500 mg tablet 500 mg PO Q6H PRN PRN Pain Score 1-10 #0 tabs 07/04/24 calcium carbonate 500 mg-vitamin D3 5 mcg (200 unit) tablet (Oyster Shell Calcium-Vitamin D3) 2 tab PO TIDCM 14 days #84 tabs 07/04/24 Hospital Course Operations - Summary of Care Provided Minutes Spent on Discharge: 30 Weight / BMI Weight Weight: 287 lb Body Mass Index (BMI) 43.6 ABG / Lab / Microbiology Data Laboratory: Laboratory Results - last 24 hr 09/18/24 06:30: Calcium 10.5 H, PTH Intact 12.3 L D/C Instructions Discharge Diet: Light diet - advance as tolerated May shower in (days): 2 Ice area for (Minutes): 20 Additional Activity Instructions: Recommend icing over the next 48 hours Recommend slow chin to chest and side to side head movements for range of motion Recommend elevating your head at a 30 degree angle for the next 48 hours when laying Call your doctor if your incision/area has: Continuous Slow Oozing, Sudden Increased Bleeding, Increased Pain/ Swelling, Increased Redness, Foul Smelling Discharge and Swelling at the incision site Call your doctor if you observe: Fever of 101 or Higher Suture Line Care: Avoid Pulling/Pushing and Avoid Pinching/Bending Cleanse incision/area with: Soap & Water Additional Dressing/Incision Instructions: There will be surgical glue in place. Leave in place until it falls off. Please Follow Up With: Jose Martin Rey MD When: Please call our office at [phone], option #2 to schedule a follow-up with Dr. Rey in 10-14 days from your surgery. You will need to obtain labs prior to appointment. Orders have been placed. Meaningful Use Info Meaningful Use Meaningful Use Diagnoses (Choose all that apply): None applicable Ischemic Stroke Statin Dosing Therapy Reference: STATIN DOSE THERAPY REFERENCE: * Patients > 75 years receive moderate or high dose statin therapy. * Patients 75 years or YOUNGER should receive HIGH intensity statin dose unless contraindicated. You will be required to document reason for non-treatment if statin daily dose does not meet guidelines. HIGH DOSE STATIN THERAPY DAILY Atorvastatin > than or = to 40 mg Rosuvastatin > than or = to 20 mg Amlodipine + Atorvastatin > than or = to 2.5/40 mg Ezetimibe + Simvastatin 10/80 mg Simvastatin 80mg Discharge Plan Admission Admit Date/Time: 07/03/24 11:29 Primary Reason for Your Visit: S/p left thyroid lobectomy with isthmusectomy Attending Provider: Jose Martin Rey Primary Care Provider: Mikel Mcnulty Instructions Additional Instructions / Restrictions: Thyroid Diet ? Start light with soups and soft bland foods. You may advance diet as tolerated. Activity ? You may drive in 3-5 days but not while taking narcotic pain medication. ? I encourage walking. You may go up steps, one at a time. ? Do not swim or use hot tubs for 2 weeks. Lifting ? You may lift up to 10 pounds for the first 2 weeks. Dressings/Incision ? You may shower OVER surgical glue and/or steri-strips in place ? Do NOT tub bathe for 1 week ? If you have clothing that rubs on your incision, you should protect it with gauze and tape, or an oversized band-aid for the first 3 to 5 days. Medications In addition to your routine medication, you will also be adding a prescription calcium supplement that you will take 2 tablets in morning, 1 tablet at lunchtime and 2 tablets at dinner. You may take 2 tablets of extra-strength TUMs as needed for any numbness/tingling you may experience. If you do experience numbness or tingling, please contact our office immediately for an update. We may need to obtain labs sooner than scheduled. ? Anesthesia used during surgery and pain medications may cause constipation. I recommend initiating on the day of surgery a fiber supplement like, Metamucil, Citrucel, FiberCon, Benefiber, or a generic form of these medications. 1 heaping tablespoon in water daily. You may continue to utilize any bowel regimen or oral laxatives that you routinely take. ? As long as you are not intolerant to Tylenol, acetaminophen, ibuprofen, Motrin, Advil, Aleve, or similar medications, I would recommend transitioning to these prab-idz-eadicuh medicines as soon as possible instead of continued use of narcotic pain medication. Follow up ? You should call [facility] soon after surgery, at [phone] option 1 to make a follow up appointment for 10-14 days after your surgery. You will need to obtain lab work prior to your appointment, either the day of or the day before. Orders have been placed for a calcium and PTH blood work. Discharge Orders/Prescriptions Prescriptions: New acetaminophen 500 mg Tablet 500 mg PO Q6H PRN PRN (Reason: Pain Score 1-10) Qty: 0 0RF calcium carbonate-vitamin D3 [Oyster Shell Calcium-Vit D3] 500 mg-5 mcg (200 unit) Tablet 2 tab PO TIDCM 14 Days Qty: 84 0RF Rx Instructions: Take 2 tablets at breakfast and dinner and 1 tablet at lunchtime Continued atorvastatin 10 mg tablet 10 mg PO QDAY carvedilol 6.25 mg tablet 6.25 mg PO BID metformin 500 mg tablet 500 mg PO QDAY spironolactone 50 mg tablet 50 mg PO QDAY Mounjaro 5 mg/0.5 mL pen injector 5 mg subcut STALLINGS levothyroxine 50 mcg tablet 50 mcg PO QDAY nitroglycerin 0.4 mg tablet, sublingual 0.4 mg sublingual Q5M PRN (Reason: chest pain) lisinopril 20 mg tablet 20 mg PO BID meloxicam 15 mg tablet 7.5 mg PO QDAY isosorbide mononitrate 30 mg tablet extended release 24 hr 30 mg PO QDAY diltiazem HCl 240 mg capsule,extended release 24hr 240 mg PO QDAY albuterol 90 mcg/actuation aerosol 90 mcg inhalation Q6H PRN PRN (Reason: ASTHMA) Held clopidogrel 75 mg tablet 75 mg PO QDAY Hold Instructions: Resume on 07/06/24. Other Ambulatory Orders: PTHIN (Routine) Timeframe: 20240718 Facility: [facility] - Location: Laboratory Ordered By: Mandy PALOMARES Calcium,Total (Routine) Timeframe: 20240718 Facility: [facility] - Location: Laboratory Ordered By: Mandy PALOMARES Referrals / Follow Up: Jose Martin Rey MD [Med Staff - Active Staff] - 07/18/24 (Please call for an appointment) Mikel Mcnulty DO [Primary Care Provider] - Disposition Disposition (needs filled in before D/C Order can be placed): Home, Self Care
--- NOTE | 2024-07-04 14:01 | TREXTCAR_ITS ---
Diet Diet Order/Speech Therapy: 07/04/24 09:15 Diet: Regular - General Diet Comments: no carbonation Wound(s) ANTERIOR NECK: Wound Type: Surgical Incision Problem/Diagnosis (1) S/P partial thyroidectomy: Status: Acute Code(s): E89.0 - Postprocedural hypothyroidism Plan: I am following this patient in conjunction with Dr. Rey. He has independently evaluated this patient. Labs reviewed. Calcium elevated. Will decrease home-going calcium intake. Increase to regular diet Plan for discharge later morning today Comment: Left thyroid lobectomy with isthmusectomy Allergies/Procedures Done in Hospital Allergies fluticasone (From Flonase) Allergy (Verified 07/03/24 06:28) Hives bee venom protein (honey bee) (bee sting) Adverse Reaction (Severe, Verified 07/03/24 06:28) Anaphylaxis clarithromycin (From Biaxin) Adverse Reaction (Unknown, Verified 07/03/24 06:28) PT UNSURE OF REACTION Follow Up Care Please Follow Up With: Jose Martin Rey MD Discharge Plan Admission Admit Date/Time: 07/03/24 11:29 Primary Reason for Your Visit: S/p left thyroid lobectomy with isthmusectomy Attending Provider: Jose Martin Rey Primary Care Provider: Mikel Mcnulty Instructions Additional Instructions / Restrictions: Thyroid Diet ? Start light with soups and soft bland foods. You may advance diet as tolerated. Activity ? You may drive in 3-5 days but not while taking narcotic pain medication. ? I encourage walking. You may go up steps, one at a time. ? Do not swim or use hot tubs for 2 weeks. Lifting ? You may lift up to 10 pounds for the first 2 weeks. Dressings/Incision ? You may shower OVER surgical glue and/or steri-strips in place ? Do NOT tub bathe for 1 week ? If you have clothing that rubs on your incision, you should protect it with gauze and tape, or an oversized band-aid for the first 3 to 5 days. Medications In addition to your routine medication, you will also be adding a prescription calcium supplement that you will take 2 tablets in morning, 1 tablet at lunchtime and 2 tablets at dinner. You may take 2 tablets of extra-strength TUMs as needed for any numbness/tingling you may experience. If you do experience numbness or tingling, please contact our office immediately for an update. We may need to obtain labs sooner than scheduled. ? Anesthesia used during surgery and pain medications may cause constipation. I recommend initiating on the day of surgery a fiber supplement like, Metamucil, Citrucel, FiberCon, Benefiber, or a generic form of these medications. 1 heaping tablespoon in water daily. You may continue to utilize any bowel regimen or oral laxatives that you routinely take. ? As long as you are not intolerant to Tylenol, acetaminophen, ibuprofen, Motrin, Advil, Aleve, or similar medications, I would recommend transitioning to these arhw-spx-zkfucev medicines as soon as possible instead of continued use of narcotic pain medication. Follow up ? You should call [facility] soon after surgery, at [phone] option 1 to make a follow up appointment for 10-14 days after your surgery. You will need to obtain lab work prior to your appointment, either the day of or the day before. Orders have been placed for a calcium and PTH blood work. Discharge Orders/Prescriptions Prescriptions: New acetaminophen 500 mg Tablet 500 mg PO Q6H PRN PRN (Reason: Pain Score 1-10) Qty: 0 0RF calcium carbonate-vitamin D3 [Oyster Shell Calcium-Vit D3] 500 mg-5 mcg (200 unit) Tablet 2 tab PO TIDCM 14 Days Qty: 84 0RF Rx Instructions: Take 2 tablets at breakfast and dinner and 1 tablet at lunchtime Continued atorvastatin 10 mg tablet 10 mg PO QDAY carvedilol 6.25 mg tablet 6.25 mg PO BID metformin 500 mg tablet 500 mg PO QDAY spironolactone 50 mg tablet 50 mg PO QDAY Mounjaro 5 mg/0.5 mL pen injector 5 mg subcut STALLINGS levothyroxine 50 mcg tablet 50 mcg PO QDAY nitroglycerin 0.4 mg tablet, sublingual 0.4 mg sublingual Q5M PRN (Reason: chest pain) lisinopril 20 mg tablet 20 mg PO BID meloxicam 15 mg tablet 7.5 mg PO QDAY isosorbide mononitrate 30 mg tablet extended release 24 hr 30 mg PO QDAY diltiazem HCl 240 mg capsule,extended release 24hr 240 mg PO QDAY albuterol 90 mcg/actuation aerosol 90 mcg inhalation Q6H PRN PRN (Reason: ASTHMA) Held clopidogrel 75 mg tablet 75 mg PO QDAY Hold Instructions: Resume on 07/06/24. Other Ambulatory Orders: PTHIN (Routine) Timeframe: 20240718 Facility: [facility] - Location: Laboratory Ordered By: Mandy PALOMARES Calcium,Total (Routine) Timeframe: 20240718 Facility: [facility] - Location: Laboratory Ordered By: Mandy PALOMARES Referrals / Follow Up: Jose Martin Rey MD [Med Staff - Active Staff] - 07/18/24 (Please call for an appointment) Mikel Mcnulty DO [Primary Care Provider] - Disposition Disposition (needs filled in before D/C Order can be placed): Home, Self Care
== END 2024-07-04 15:23 | disposition home or self-care (01) ==
LOC: SDC 14:59 → MS3 14:59
PROVIDERS: Admitting Provider Surgery; Referring Provider Surgery; Visit Provider Surgery
PROC: (CPT 60500; principal; 2024-07-03 07:15)
DX: E21.0 Primary hyperparathyroidism (principal); E11.22 Type 2 diabetes mellitus with diabetic chronic kidney disease; Z79.84 Long term (current) use of oral hypoglycemic drugs; N18.9 Chronic kidney disease, unspecified; I12.9 Hypertensive chronic kidney disease with stage 1 through stage 4 chronic kidney disease, or unspecified chronic kidney disease; I25.10 Atherosclerotic heart disease of native coronary artery without angina pectoris; E04.1 Nontoxic single thyroid nodule; D35.1 Benign neoplasm of parathyroid gland; Z79.899 Other long term (current) drug therapy; Z79.02 Long term (current) use of antithrombotics/antiplatelets; Z79.890 Hormone replacement therapy; Z23 Encounter for immunization
CPT/HCPCS: 60500; 00320; 36415; 82310; 82962; 83970; 88307; 88331; 88341; 88342; 90662; 96360; 96361; 99221; A4648; J7030; J7120; G0378; J2405

== ENCOUNTER → 2024-07-16 | Outpatient (CLI) | payer MEDICARE, SELFPAY ==
[2024-07-16 09:35] LABS: Calcium,Total 8.4 mg/dL (8.5-10.1)
[2024-07-16 09:52] LABS: PTHIN 191.8 pg/mL (18.4-80.1)
== END | disposition home or self-care (01) ==
LOC: PAVLAB 08:48
PROVIDERS: Referring Provider Surgery; Visit Provider Surgery
DX: E04.2 Nontoxic multinodular goiter (principal); E55.9 Vitamin D deficiency, unspecified; E21.3 Hyperparathyroidism, unspecified
CPT/HCPCS: 36415; 82310; 83970